=== PATIENT | female | born 1985 | race Caucasian/White ===

== ENCOUNTER 2017-07-16 18:41 | Emergency (ER) | payer OTHER ==
[~2017-07-16] VITALS: Ht 160 cm; Wt 79.5 kg
[2017-07-16 18:46] VITALS: Ht 160 cm; Wt 79.5 kg
[2017-07-16] MEDS ORDERED: ONDANSETRON 4 MG INJ IV STA ×2 (20:42→22:31)
[2017-07-16] MEDS ORDERED: SOD CHLORIDE 0.9% 1,000 ML IV STA (20:42)
[2017-07-16] MEDS ORDERED: morphine 4 MG/ML VIAL IV STA (20:42)
[2017-07-16] MEDS ORDERED: LIDOCAINE/MYLANTA 40 ML BTL PO STA (20:42)
[2017-07-16] MEDS ORDERED: ACETAMINOPHEN 325 MG TAB PO ONE (21:00)
[2017-07-16 21:03] LABS: BASOPHIL # 0.1 10^3/ul (0.0-0.1); BASOPHILS % 0.5 % (0.0-2.0); EOSINOPHILS # 0.1 10^3/ul (0.0-0.5); EOSINOPHILS % 1.1 % (0.0-7.0); HEMOGLOBIN 14.9 g/dl (12.0-16.0); LYMPHOCYTES # 1.9 10^3/ul (0.8-2.9); LYMPHOCYTES % 16.7 % (15.0-51.0); MEAN CORPUSCULAR HEMOGLOBIN 28.3 pg (29.0-33.0); MEAN CORPUSCULAR HGB CONC 33.1 g/dl (32.0-37.0); MEAN CORPUSCULAR VOLUME 85.4 fl (82.0-101.0); MEAN PLATELET VOLUME 10.6 fl (7.4-10.4); MONOCYTE # 0.9 10^3/ul (0.3-0.9); MONOCYTES % 7.7 % (0.0-11.0); NEUTROPHIL # 8.3 10^3/ul (1.6-7.5); NEUTROPHILS % 73.5 % (39.0-77.0); PLATELET COUNT 295 10^3/UL (140-415); RED BLOOD COUNT 5.27 10^6/ul (4.20-5.40); RED CELL DISTRIBUTION WIDTH 13.2 % (11.5-14.5); WHITE BLOOD COUNT 11.3 10^3/ul (4.8-10.8)
[2017-07-16 21:12] VITALS: TEMP 99.8
[2017-07-16 21:16] LABS: INR 0.96; PROTIME 12.8 Sec (12.2-14.2)
[2017-07-16 21:17] LABS: ADD UMIC YES; PARTIAL THROMBOPLASTIN TIME 27.7 Sec (25.0-35.0); UR ASCORBIC ACID NEGATIVE (NEGATIVE); UR BACTERIA FEW /HPF (NONE SEEN); UR BILIRUBIN (Dip) NEGATIVE (NEGATIVE); UR BLOOD (Dip) 1+ mg/dL (NEGATIVE); UR CLARITY CLEAR (CLEAR); UR COLOR YELLOW (YELLOW); UR GLUCOSE (Dip) NEGATIVE (NEGATIVE); UR KETONES (Dip) NEGATIVE (NEGATIVE); UR LEUKOCYTE ESTERASE (Dip) NEGATIVE Leu/ul (NEGATIVE); UR MUCUS FEW /HPF (NONE SEEN); UR NITRITE (Dip) NEGATIVE (NEGATIVE); UR RBC 4 /HPF (0-5); UR TOTAL PROTEIN (Dip) NEGATIVE (NEGATIVE); UR UROBILINOGEN (Dip) NEGATIVE (NEGATIVE)
[2017-07-16 21:25] LABS: ALBUMIN 4.6 g/dl (3.3-4.9); ALBUMIN/GLOBULIN RATIO 1.31; BILIRUBIN,INDIRECT 0.7 mg/dl (0-1.1); BILIRUBIN,TOTAL 0.7 mg/dl (0.2-1.3); CALCIUM 9.4 mg/dl (8.4-10.2); CREATININE 0.71 mg/dl (0.44-1.00); POTASSIUM 3.6 mmol/L (3.5-5.1); TOTAL PROTEIN 8.1 g/dl (6.1-8.1)
--- NOTE | 2017-07-16 22:31 | RADRPT ---
PROCEDURE: CT abdomen and pelvis without intravenous contrast. CLINICAL INDICATION: Pain. TECHNIQUE: CT of the abdomen/pelvis was performed utilizing axial images with reconstructions in s agittal and coronal planes. The administered radiation dose is CTDI 12.7 mGy, DLP 665 mGy-cm. One or more of the following dose reduction techniques were used: automated exposure control, adjustment o f the mA and/or kV according to patient size and/or use of iterative reconstruction technique. COMPARISON: No pertinent prior examinations were submitted for comparison. FINDINGS: Visualized Chest: The visualized lung bases are clear. Abdomen: The liver, spleen, pancreas, gallbladder,and adrenal glands are unremarkable. The kidneys are without hydronephrosis. There is a 6 cm cyst within the interpolar left kidney. Pun ctate nonobstructive calculi are noted at the lower pole of the left kidney. There is no evidence of bowel obstruction. The appendix is normal. No intra-abdominal free air is seen. There is some mild increased formed stool throughout the colon. There is no evidence of intra-abdominal adenopathy or free fluid. Pelvis: There is no evidence of pelvic adenopathy. The uterus and ovaries are without enlargement. The uri nary bladder is unremarkable. There is no pelvic free fluid. An IUD is noted within the uterus. Osseous structures: Unremarkable. IMPRESSION: No acute findings. Left nephrolithiasis. Large left renal cyst. Mild increased stool throughout the colon suggestive of constipation. RPTAT: HIKT .Mohinder Saldaña MD, Date Time Electronically viewed and signed by .Mohinder Saldaña MD, MD on 07/16/2017 22:31 .T/
[2017-07-16] MEDS ORDERED: RANI150T9 PO (22:51)
[2017-07-16] MEDS ORDERED: OMEP20CA16 PO (22:51)
[2017-07-16] MEDS ORDERED: ONDA4TAB14 PO (22:51)
--- NOTE | 2017-07-20 21:54 | ERD ---
ER Documentation Chief Complaint Date/Time DATE: 07/20/17 TIME: 21:47 Chief Complaint mid abd pain x3 days, vomited today HPI Patient is a 32-year-old female presenting to the emergency department with complaints of intermittent midepigastric abdominal pain associated with vomiting for the past 3 days. She states she cannot keep food down. She is also had fevers. She states she vomited approximately 7 times today. HEENT is constant and aching in nature. She also reports chills. She denies diarrhea, urinary symptoms, or other symptoms currently. She does note that she has past medical history of kidney stones and gastric ulcers. Ulcer requesting chlamydia and gonorrhea testing. She denies other symptoms currently. ROS All systems reviewed and are negative except as per history of present illness. Medications Home Meds Active Scripts Ranitidine Hcl* (Zantac*) 150 Mg Tablet, 150 MG PO BID Y for EPIGASTRIC PAIN, # 30 TAB Prov:MIKE EVERETT PA-C 07/16/17 Omeprazole* (Omeprazole*) 20 Mg Capsule.dr, 20 MG PO DAILY, #20 Prov:MIKE EVERETT PA-C 07/16/17 Ondansetron (Ondansetron Odt) 4 Mg Tab.rapdis, 4 MG PO Q6H Y for NAUSEA AND/OR VOMITING, #10 TAB Prov:MIKE EVERETT PA-C 07/16/17 Allergies Allergies: Coded Allergies: No Known Allergy (Unverified , 07/16/17) PMhx/Soc Medical and Surgical Hx: pt denies Medical Hx History of Surgery: No Anesthesia Reaction: No Hx Neurological Disorder: No Hx Respiratory Disorders: No Hx Cardiac Disorders: No Hx Psychiatric Problems: No Hx Miscellaneous Medical Probl: Yes (Gastric ulcer, kidney stones) Hx Alcohol Use: No Hx Substance Use: No Hx Tobacco Use: No Smoking Status: Never smoker Physical Exam Vitals Vital Signs Date Time Temp Pulse Resp B/P Pulse Ox O2 Delivery O2 Flow Rate FiO2 07/16/17 21:12 99.8 07/16/17 18:46 100.8 117 20 137/86 99 Physical Exam Const: Toxic, well-appearing female in no acute distress. Head: Atraumatic Eyes: Normal Conjunctiva ENT: Normal External Ears, Nose and Mouth. Neck: Full range of motion..~ No meningismus. Resp: Clear to auscultation bilaterally Cardio: Regular rate and rhythm, no murmurs Abd: Soft, midepigastric tenderness to palpation but no Lei sign, rebound tenderness or guarding, negative McBurney's point tenderness, non distended. Normal bowel sounds Skin: No petechiae or rashes Ext: No cyanosis, or edema Neur: Awake and alert Psych: Normal Mood and Affect Result Diagram: 07/16/17205207/16/172052 Results 24 hrs Laboratory Tests Test 07/16/17 20:53 White Blood Count 11.310^3/ul Red Blood Count 5.2710^6/ul Hemoglobin 14.9g/dl Hematocrit 45.0% Mean Corpuscular Volume 85.4fl Mean Corpuscular Hemoglobin 28.3pg Mean Corpuscular Hemoglobin Concent 33.1g/dl Red Cell Distribution Width 13.2% Platelet Count 78151^3/UL Mean Platelet Volume 10.6fl Neutrophils % 73.5% Lymphocytes % 16.7% Monocytes % 7.7% Eosinophils % 1.1% Basophils % 0.5% Nucleated Red Blood Cells % 0.0/100WBC Neutrophils # 8.310^3/ul Lymphocytes # 1.910^3/ul Monocytes # 0.910^3/ul Eosinophils # 0.110^3/ul Basophils # 0.110^3/ul Nucleated Red Blood Cells # 0.010^3/ul Prothrombin Time 12.8Sec Prothrombin Time Ratio 1.0 INR International Normalized Ratio 0.96 Activated Partial Thromboplast Time 27.7Sec Urine Color YELLOW Urine Clarity CLEAR Urine pH 5.0 Urine Specific Wilsey 1.010 Urine Ketones NEGATIVEmg/dL Urine Nitrite NEGATIVEmg/dL Urine Bilirubin NEGATIVEmg/dL Urine Urobilinogen NEGATIVEmg/dL Urine Leukocyte Esterase NEGATIVELeu/ul Urine Microscopic RBC 4/HPF Urine Microscopic WBC 3/HPF Urine Bacteria FEW/HPF Urine Mucus FEW/HPF Urine Hemoglobin 1+mg/dL Urine Glucose NEGATIVEmg/dL Urine Total Protein NEGATIVEmg/dl Sodium Level 139mmol/L Potassium Level 3.6mmol/L Chloride Level 104mmol/L Carbon Dioxide Level 25mmol/L Anion Gap 14 Blood Urea Nitrogen 10mg/dl Creatinine 0.71mg/dl Glucose Level 107mg/dl Calcium Level 9.4mg/dl Total Bilirubin 0.7mg/dl Direct Bilirubin 0.00mg/dl Indirect Bilirubin 0.7mg/dl Aspartate Amino Transf (AST/SGOT) 26IU/L Alanine Aminotransferase (ALT/SGPT) 78IU/L Alkaline Phosphatase 79IU/L Total Protein 8.1g/dl Albumin 4.6g/dl Globulin 3.50g/dl Albumin/Globulin Ratio 1.31 Lipase 58U/L Current Medications Medications (Trade) Dose Ordered Sig/Hao Route PRN Reason Start Time Stop Time Status Last Admin Dose Admin Sodium Chloride (NS) 1,000 ml @ 1,000 mls/hr Q1H STAT IV 07/16/17 20:42 07/16/17 21:41 DC 07/16/17 20:57 Morphine Sulfate (morphine) 4 mg ONCE STAT IV 07/16/17 20:42 07/16/17 20:44 DC 07/16/17 21:05 Ondansetron HCl (Zofran Inj) 4 mg ONCE STAT IV 07/16/17 20:42 07/16/17 20:44 DC 07/16/17 20:57 Miscellaneous Medication (Gi Cocktail (2)) 40 ml ONCE STAT PO 07/16/17 20:42 07/16/17 20:44 DC 07/16/17 21:05 Acetaminophen (Tylenol Tab) 650 mg ONCE ONCE PO 07/16/17 21:00 07/16/17 21:01 DC 07/16/17 20:57 Ondansetron HCl (Zofran Inj) 4 mg ONCE STAT IV 07/16/17 22:31 07/16/17 22:32 DC 07/16/17 22:42 Procedures/MDM 32-year-old female presenting to the emergency department with complaints of midepigastric pain. There was some midepigastric tenderness to palpation. The patient was given an IV line with fluids, Tylenol as antipyretic, IV morphine, IV Zofran, GI cocktail. She was feeling improved prior to discharge. CBC showed mild leukocytosis at 11.3, but not significant. No signs of anemia. Chemistry panel was within normal limits, except slight elevation in ALT at 78. This is a nonspecific finding. There is 1+ hemoglobin on urinalysis which is also nonspecific finding. No signs of infection, or proteinuria. Abdominal and pelvis CT showed no significant acute findings. Patient's epigastric pain has unclear etiology at this time, however it may be related to GERD symptoms. The patient is stable for outpatient management with a prescription for Zofran, omeprazole, and ranitidine. She was advised to have close follow-up with her primary care physician. She is to return immediately for any new or worsening symptoms. Low suspicion for acute abdomen or other life-threatening pathology at time of discharge. Shared medical decision making with the patient and she was in agreement. PROCEDURE: CT abdomen and pelvis without intravenous contrast. CLINICAL INDICATION: Pain. TECHNIQUE: CT of the abdomen/pelvis was performed utilizing axial images with reconstructions in sagittal and coronal planes. The administered radiation dose is CTDI 12.7 mGy, DLP 665 mGy-cm. One or more of the following dose reduction techniques were used: automated exposure control, adjustment of the mA and/or kV according to patient size and/or use of iterative reconstruction technique. COMPARISON: No pertinent prior examinations were submitted for comparison. FINDINGS: Visualized Chest: The visualized lung bases are clear. Abdomen: The liver, spleen, pancreas, gallbladder,and adrenal glands are unremarkable. The kidneys are without hydronephrosis. There is a 6 cm cyst within the interpolar left kidney. Punctate nonobstructive calculi are noted at the lower pole of the left kidney. There is no evidence of bowel obstruction. The appendix is normal. No intra- abdominal free air is seen. There is some mild increased formed stool throughout the colon. There is no evidence of intra-abdominal adenopathy or free fluid. Pelvis: There is no evidence of pelvic adenopathy. The uterus and ovaries are without enlargement. The urinary bladder is unremarkable. There is no pelvic free fluid. An IUD is noted within the uterus. Osseous structures: Unremarkable. IMPRESSION: No acute findings. Left nephrolithiasis. Large left renal cyst. Mild increased stool throughout the colon suggestive of constipation. RPTAT: HIKT .Mohinder Saldaña MD, MD Date Time Electronically viewed and signed by .Mohinder Saldaña MD, MD on 07/16/2017 22:31 Departure Diagnosis: Primary Impression: Epigastric pain Condition: Fair Patient Instructions: Gerd (Adult), Epigastric Pain (Uncertain Cause) Referrals: [facility] YOU HAVE RECEIVED A MEDICAL SCREENING EXAM AND THE RESULTS INDICATE THAT YOU DO NOT HAVE A CONDITION THAT REQUIRES URGENT TREATMENT IN THE EMERGENCY DEPARTMENT. FURTHER EVALUATION AND TREATMENT OF YOUR CONDITION CAN WAIT UNTIL YOU ARE SEEN IN YOUR DOCTORS OFFICE WITHIN THE NEXT 1-2 DAYS. IT IS YOUR RESPONSIBILITY TO MAKE AN APPOINTMENT FOR FOLOW-UP CARE. IF YOU HAVE A PRIMARY DOCTOR --you should call your primary doctor and schedule an appointment IF YOU DO NOT HAVE A PRIMARY DOCTOR YOU CAN CALL OUR PHYSICIAN REFERRAL HOTLINE AT IF YOU CAN NOT AFFORD TO SEE A PHYSICIAN YOU CAN CHOSE FROM THE FOLLOWING [facility] [address] [facility] [address] [facility] [facility] [address] [facility] [address] [facility] [address] [facility] [facility]. [address] Additional Instructions: Follow up with your PCP within the next 1-3 days for a repeat evaluation. If you require a referral to a specialist, your Primary Care Provider may be able to provide this for you. In most patient cases, a referral is not required. If you have further questions regarding this matter, please ask your Primary Care Provider. Return the the emergency department immediately if symptoms worsen or change. If you have any questions regarding medications, ask your pharmacist or us before you leave. If any adverse reactions, occur while taking your medications, discontinue the treatment and return to the emergency department immediately. If any new or worsening symptoms, uncontrolled fevers, or other unexplained symptoms occur, return to the emergency department immediately. Take your medications as directed, and complete the entire course of treatment. MIKE EVERETT PA-C Jul 20, 2017 21:54
== END 2017-07-16 23:09 | disposition home or self-care (01) ==
LOC: FTE 18:41
DX: R10.13 Epigastric pain (principal)
CPT/HCPCS: 36415; 74176; 80053; 81001; 83690; 85025; 85610; 85730; 96361; 96374; 96375; J2270; J2405; J7030; Z7502; Z7610